=== PATIENT | female | born 1945 | race Caucasian/White ===

== ENCOUNTER 2023-07-30 15:54 | Outpatient (RCR) | payer OTHER, SELFPAY | END 2023-07-30 23:59 | disposition home or self-care (01) | LOC: RPT 15:54 | PROVIDERS: ATTENDING PHYSICIAN Physician Assistant Medical; FAMILY PHYSICIAN Student in an Organized Health Care Education/Training Program | DX: M25.512 Pain in left shoulder (principal); M25.511 Pain in right shoulder; M75.81 Other shoulder lesions, right shoulder; Z73.6 Limitation of activities due to disability; M62.81 Muscle weakness (generalized); R20.2 Paresthesia of skin | CPT/HCPCS: 97010; 97110; 97162 ==

== ENCOUNTER 2023-08-27 14:53 | Outpatient (RCR) | payer OTHER, SELFPAY | END 2023-08-27 23:59 | disposition home or self-care (01) | LOC: RPT 14:53 | PROVIDERS: ATTENDING PHYSICIAN Physician Assistant Medical; FAMILY PHYSICIAN Student in an Organized Health Care Education/Training Program | DX: M25.512 Pain in left shoulder (principal); M25.511 Pain in right shoulder; M75.81 Other shoulder lesions, right shoulder; Z73.6 Limitation of activities due to disability; M62.81 Muscle weakness (generalized) | CPT/HCPCS: 97010; 97110 ==

== ENCOUNTER 2023-09-20 15:17 | Outpatient (RCR) | payer OTHER, SELFPAY | END 2023-09-20 23:59 | disposition home or self-care (01) | LOC: RPT 15:17 | PROVIDERS: ATTENDING PHYSICIAN Physician Assistant Medical; FAMILY PHYSICIAN Student in an Organized Health Care Education/Training Program | DX: M25.512 Pain in left shoulder (principal); M25.511 Pain in right shoulder; M75.81 Other shoulder lesions, right shoulder; Z73.6 Limitation of activities due to disability; M62.81 Muscle weakness (generalized) | CPT/HCPCS: 97010; 97110 ==

== ENCOUNTER 2023-10-19 15:29 | Outpatient (RCR) | payer OTHER, SELFPAY | END 2023-10-19 23:59 | disposition home or self-care (01) | LOC: RPT 15:29 | PROVIDERS: ATTENDING PHYSICIAN Physician Assistant Medical; FAMILY PHYSICIAN Student in an Organized Health Care Education/Training Program | DX: M25.512 Pain in left shoulder (principal); M25.511 Pain in right shoulder; M75.81 Other shoulder lesions, right shoulder; Z73.6 Limitation of activities due to disability; M62.81 Muscle weakness (generalized) | CPT/HCPCS: 97010; 97110 ==

== ENCOUNTER → 2023-10-23 14:24 | Outpatient (REF) | payer OTHER, SELFPAY | LOC: RAD 14:24 | PROVIDERS: ATTENDING PHYSICIAN Student in an Organized Health Care Education/Training Program | DX: E11.29 Type 2 diabetes mellitus with other diabetic kidney complication (principal); R10.9 Unspecified abdominal pain | CPT/HCPCS: 74177; Q9967 ==

== ENCOUNTER 2023-11-29 15:02 | Outpatient (RCR) | payer OTHER, SELFPAY | END 2023-11-29 23:59 | disposition home or self-care (01) | LOC: RPT 15:02 | PROVIDERS: ATTENDING PHYSICIAN Physician Assistant Medical; FAMILY PHYSICIAN Student in an Organized Health Care Education/Training Program | DX: M25.512 Pain in left shoulder (principal); M25.511 Pain in right shoulder; M75.81 Other shoulder lesions, right shoulder; Z73.6 Limitation of activities due to disability; M62.81 Muscle weakness (generalized) | CPT/HCPCS: 97010; 97110 ==

== ENCOUNTER 2023-12-06 15:18 | Outpatient (RCR) | payer OTHER, SELFPAY | END 2023-12-07 07:34 | disposition home or self-care (01) | LOC: RPT 15:18 | PROVIDERS: ATTENDING PHYSICIAN Physician Assistant Medical; FAMILY PHYSICIAN Student in an Organized Health Care Education/Training Program | DX: M25.512 Pain in left shoulder (principal); M25.511 Pain in right shoulder; M75.81 Other shoulder lesions, right shoulder; Z73.6 Limitation of activities due to disability; M62.81 Muscle weakness (generalized) | CPT/HCPCS: 97010; 97110 ==

== ENCOUNTER → 2023-12-17 14:31 | Outpatient (REF) | payer OTHER, SELFPAY | LOC: WDC 14:31 | PROVIDERS: ATTENDING PHYSICIAN Surgery; FAMILY PHYSICIAN Emergency Medicine | DX: N64.4 Mastodynia (principal) | CPT/HCPCS: 76642 ==

== ENCOUNTER → 2024-04-04 14:17 | Outpatient (REF) | payer OTHER, SELFPAY | LOC: RAD 14:17 | PROVIDERS: ATTENDING PHYSICIAN Obstetrics & Gynecology Gynecology; FAMILY PHYSICIAN Emergency Medicine | DX: N95.0 Postmenopausal bleeding (principal) | CPT/HCPCS: 76830; 76856 ==

== ENCOUNTER → 2024-05-13 15:08 | Outpatient (REF) | payer OTHER, SELFPAY | LOC: WDC 15:08 | PROVIDERS: ATTENDING PHYSICIAN Emergency Medicine | DX: Z12.31 Encounter for screening mammogram for malignant neoplasm of breast (principal) | CPT/HCPCS: 77063; 77067 ==

== ENCOUNTER → 2024-06-16 18:03 | Outpatient (REF) | payer OTHER, SELFPAY | LOC: MRI 18:03 | PROVIDERS: ATTENDING PHYSICIAN Obstetrics & Gynecology Gynecology; FAMILY PHYSICIAN Emergency Medicine | DX: N95.0 Postmenopausal bleeding (principal); D21.9 Benign neoplasm of connective and other soft tissue, unspecified; E28.0 Estrogen excess; C80.1 Malignant (primary) neoplasm, unspecified | CPT/HCPCS: 72197; A9575 ==

== ENCOUNTER → 2024-09-08 14:19 | Outpatient (REF) | payer OTHER, SELFPAY | LOC: RAD 14:19 | PROVIDERS: ATTENDING PHYSICIAN Obstetrics & Gynecology Gynecologic Oncology; FAMILY PHYSICIAN Emergency Medicine; REFERRING PHYSICIAN Obstetrics & Gynecology Gynecology | DX: N95.0 Postmenopausal bleeding (principal); R19.03 Right lower quadrant abdominal swelling, mass and lump; R19.04 Left lower quadrant abdominal swelling, mass and lump; R97.8 Other abnormal tumor markers | CPT/HCPCS: 71260; 74177; Q9967 ==

== ENCOUNTER → 2024-09-30 10:45 | Outpatient (REF) | payer OTHER, SELFPAY | LOC: PAVMRI 10:45 | PROVIDERS: ATTENDING PHYSICIAN Nurse Practitioner Family; FAMILY PHYSICIAN Emergency Medicine | DX: R42 Dizziness and giddiness (principal) | CPT/HCPCS: 70553; A9575 ==

== ENCOUNTER 2024-10-14 06:21 | Day surgery (SDC) | payer OTHER, SELFPAY ==
--- NOTE | 2024-10-07 15:56 | VNURNOTE ---
Chart reviewed. Rec'ed info from PAT RN that patient may need VN post op. Home Health Liaison spoke with patient to discuss [facility] nurse/therapy, visits, schedule and homebound status. Patient is agreeable and understands that visits at home will be
2-3 x per week to assess and teach medical management. Patient is aware that [facility] will contact them for start of care in 1-2 days after discharge from .
[facility] referral completed in [facility].
[2024-10-08 13:58] VITALS: BMI 31.0
--- NOTE | 2024-10-13 06:45 | W.CON.GYNONC ---
Chief Complaint
-
leiomyoma
History of Present Illness
78�year�old�woman�who�is�presenting�to�the�office�for�consultation� CT�abdomen�and�pelvis�done�[place]�2024�shows�large�degenerated�uterine�fibroid�seen�again
Endometrial�biopsy�performed�[place]�2024�shows�benign�endometrial�polyp�disordered�proliferative�endometrium�approaching simple�hyperplasia�without�atypia.
Ultrasound�of�pelvis�October�2024�shows�uterus�11�x�4.5�x�6.4�cm,�the�uterus�is�overall�smaller�in�size�compared�to�the�prior�study
which�measured�20�cm,�some�calcified�fibroids�are�seen.�Endometrium�is�heterogeneous�at�1.5�cm�in�a�postmenopausal�woman which�is�abnormal.
4�patient�underwent�D&C,�there�is�fragments�of�endometrial�endocervical�polyp,�endometrial�polyp�was�removed which�was�benign.�Endocervical�curetting�shows�benign�endocervical�glandular�fragments.
An�MRI�of�the�pelvis�was�done�[place].�Impression�is�that�endometrial�stripe�is�actually�4.6�mm,�endometrial�cancer�is
unlikely,�there�is�multiple�calcified�enhancing�uterine�fibroids�compatible�with�previously�treated�uterine�artery�embolization.
Patient�did�have�additional�blood�work�February�2025�estradiol�was�elevated�at�188,�inhibin�B�was�at�21.3,�inhibin�a�was�18.
Patient�reports�having�had�breast�tenderness�a�number�of�months�ago�for�which�she�saw�Dr.�Angotti,�etiology�was�unclear.�She�has had�recent�breast�tenderness�again�but�none�today.
She�does�observe�that�many�of�the�bleeding�episodes�over�the�last�year�have�occurred�after�steroid�injection�that�she�received�in�her shoulders�or�knees�by�orthopedic�surgery
meds
aspirin�81�mg�capsule 08/18/2024 0 1�p.o.�q.�day atorvastatin�20�mg�tablet 08/18/2024 0 1�p.o.�twice�a day�(BID) Fish�Oil�900�mg�360�mg�455�mg�1,000�mg�capsule 09/22/2024 0 1�p.o.�q.�day metformin�500�mg/5�mL�oral�solution 08/18/2024 0 1�p.o.�twice�a
day�(BID) metoprolol�succinate�ER�25�mg�tablet,extended release�24�hr 08/18/2024 0 12.5�mg�1�p.o. q.�day multivitamin�oral 09/22/2024 0 1�p.o.�q.�day omeprazole�20�mg�tablet,delayed�release 08/18/2024 0 1�p.o.�twice�a day�(BID)
potassium�408�mg�debby�100�mg�magnes�120�mgmangan�2�mg�oral�powder�pack 09/22/2024 0 1�p.o.�q.�day tolterodine�2�mg�tablet 08/18/2024 0 1�p.o.�twice�a day�(BID)
Vitamin�D3�25�mcg�(1,000�unit)�tablet 09/22/2024 0 Xanax�0.5�mg�tablet 09/22/2024 0 1�p.o.�twice�a day�(BID)�prn
Past�Medical�History Allergies Anxiety Arthritis Cataract Diabetes�Mellitus Hypertension Hyperlipidemia Kidney�disease Osteoporosis
Surgical�History Biopsy�2021 Cholecystectomy�1988 Bilateral�Knee�replacement�2015
Social�History Patient�denies�ever�using�tobacco. Social�use�of�alcohol. Denies�any�illicit�drug�use. Marital�Status:�Patient�is�
Gynecological�History Age�at�Menarche�12�years.�Age�at�menopause:�53�years.�Patient�reports�1�pregnancies.
Family�Medical�History Sister:�breast�cancer,�hypertension Sister:�Colon�cancer Uncle�Colon�cancer Father:�Diabetes,�Heart�disease,�Hypertension Mother:�stroke
Medical History
Allergies
Allergies reflect when allergies were last updated in [employer].
ciprofloxacin Allergy (Verified 10/07/24 13:39)
redness of face & neck
Quinolones Allergy (Verified 10/07/24 13:39)
face and neck flushing
seasonal Allergy (Uncoded 10/07/24 13:39)
stuffy nose, clearing throat
Physical Exam
Physical Exam
General:�Well�developed,�well�nourished�patient.�In�no�acute�distress. Head:�Atraumatic�and�normocephalic. Neck:�No�thyromegaly.�No�cervical�lymphadenopathy. Lungs:�Clear�to�auscultation.�Good�air�movement�bilaterally.
Cardiac:�Regular�rate.�Regular�rhythm.�No�murmurs�appreciated. Abdomen:�Abdomen�is�soft.�Non�tender�to�palpation.�Non�distended. Extremities:�No�edema. Hematologic/Lymphatic:�No�palpable�lymphadenopathy.
Musculoskeletal:�Normal�range�of�motion.�Strength�and�Tone�are�normal. Neurologic:�Speech�is�fluent.�Normal�gait�and�station.�Cranial�nerves�intact.
Results
-
,08/29/24�JK789=3.6 ,08/29/24�CEA=3.8 08/29/24�AICMHC=689�2�POTASSIUM=5.0�2�XSMEDQCK=895�2�GLUCOSE=98�08/29/24�BUN=22�2 CREAT=1.06 08/29/24�CALCIUM=9.6�Total�Protein=5.9,�08/29/24�ALBUMIN=4.0
08/29/24�HMF=694,�Total�Bili=0.2�2�ALK�PHOS=79,�08/29/24�AST=20,�08/29/24�ALT=16 08/29/24�PROTIME=11.4,�08/29/24�INR=1.0, Ferritin=29,�08/29/24�IRON=69, 08/29/24�Q10=2239
[facility]
[address] [place] [id number]
[phone]
Patient Name: ERYN DOMINGO
: 1945
Unit Number: [id number]
Age/Sex: 78/F
Patient
Location: RAD
Order Provider: Abdi Baez MD
Exam Service Date: 09/08/24

Diagnostic Imaging Report
SignedOrder #:[id number]
Exams: CT Chest/abd/pel W Iv Cont
EXAMINATION: CT chest, abdomen, and pelvis with intravenous contrast.
INDICATION: Postmenopausal bleeding. Right lower quadrant abdominal swelling, mass and lump. Left lower quadrant abdominal swelling, mass and lump. Other abnormal tumor markers. Evaluate for metastatic disease.
COMPARISON: CT abdomen and pelvis 10/23/2023. No previous CT chest.
TECHNIQUE: Continuous helical acquisition from the apices of the lungs through the pubic symphysis following the intravenous administration of 80 mL of Omnipaque. Automated dose reduction technique was utilized. Delayed phase abdominal images were
acquired. Axial reconstructions and sagittal and coronal reformats provided.
FINDINGS:
Lungs: No consolidation. No pneumothorax. No pulmonary mass. No tracheal or endobronchial nodule or filling defect. 2 to 3 mm nodular opacity along the vessel in the lateral right lower lobe (image #28 series 201). Subpleural 3 mm nodule left upper
lobe (image #10 series 201). Left lower lobe oblong 4 mm focal opacity (image #31 series 201). Posterior left lower lobe 4 mm nodular opacity dependent position, possibly related to dependent atelectasis (image #22 series 201). No nodules highly
suspicious for metastatic disease.
Mediastinum: Thyroid gland is unremarkable. There is no axillary adenopathy. There is no mediastinal adenopathy. There is no enhancing mediastinal mass. No pleural or pericardial effusion. No cardiomegaly. No aneurysmal dilation of the thoracic
aorta. No hilar adenopathy identified. There is subcentimeter right hilar lymph node, nonspecific.
Abdomen and pelvis: Liver shows a left lobe subcentimeter low-attenuation lesion, too small to characterize but most likely a cyst. This was present prior. No suspicious focal hepatic lesions. No intrahepatic biliary dilation. Gallbladder is
surgically absent. Spleen is unremarkable. Pancreas is unremarkable. There is small probable accessory splenule adjacent to the pancreatic tail. This is unchanged from prior. Adrenal glands show some mild thickening which is likely related to
hyperplasia. The left kidney shows a subcentimeter low-attenuation focus, too small to characterize but most likely a cyst. Right kidney shows 2 subcentimeter low-attenuation foci, too small to characterize but most likely cysts. Right kidney also
shows a simple parapelvic cyst.
There is no bowel obstruction. The appendix is normal. Moderate number of colonic diverticula, no signs of acute diverticulitis. No abnormal focal inflammatory reaction of the bowel is seen. There is no free air or free fluid within the abdomen.
There is no retroperitoneal lymphadenopathy. There is no aneurysmal dilation of the abdominal aorta. There are moderate calcific atherosclerotic changes.
Uterus is enlarged and shows multiple mass lesions as seen previously. Some are rim calcified and some show partial dense stippled calcifications. At a hostess party sales representative level, the dominant mass measures approximately 13.4 cm transverse which is
similar to prior, with the mass in a slightly different position. At other measured hostess party sales representative levels, no definitive interval increase in size is identified. Soft tissue attenuation portion of the mass shows heterogeneous attenuation which is
unchanged from prior. The enlarged uterus exerts some mass effect against the decompressed urinary bladder. Endometrium is relatively indistinct at CT, no focal lesion identified. Rectum is unremarkable. No free fluid is seen within the pelvis.
Bones: Advanced degenerative changes of the spine. No suspicious focal osseous lesions.
IMPRESSION:
1. No findings highly suspicious for metastatic disease.
2. Very small pulmonary nodular/focal opacities as above. Given the small size, these are likely to have a benign etiology. As warranted, consider follow-up examination in 12 months for further evaluation.
3. Enlarged multi fibroid uterus as seen previously with extensive fibroid calcification. No clear interval increase in size of the dominant uterine mass.
4. Diverticulosis without diverticulitis.
Electronically signed by Mansoor Nieves DO, 09/08/2024 6:45 PM
Impression / Plan
-
This�patient�has�large�leiomyoma,�previously�treated�with�uterine�artery�embolization.�Over�the�course�of�past�year�she�has�had
multiple�episodes�of�bleeding�some�similar�to�her�menstrual�cycles�and�etiology�of�it�has�been�explored�but�nothing�has�been identified�as�of�yet.�The�workup�is�excellent�including�to�sampling�of�endometrium�and�also�evaluation�of�hormonal�values.
On�the�labs�that�I�ordered�there�is�definite�evidence�of�elevated�inhibin�B�and�actually�her�FSH�is�in�the�normal�range�suggesting�that
she�has�circulating�estrogen.�I�am�suspicious�that�she�may�have�granulosa�cell�tumor�of�the�ovary�even�though�her�ovaries�are�not enlarged.
CT�of�chest�abdomen�and�pelvis�as�well�as�chest�shows�no�evidence�of�metastatic�disease�to�retroperitoneum�and�some�very�small right�and�significant�pulmonary�nodules�are�identified.�These�will�be�followed�hopefully�in�the�future�CT.�
I�am�repeating�her�blood�test�including�tumor�markers�and�I�am�recommending�that�she�returns�back�in�3�weeks�for�discussion.�
I�am�still�going�forward�and�recommending�surgery�to�include�removal�of�uterus�cervix�bilateral�tubes�and�ovaries,�while�the�surgery
can�be�done�robotically�most�likely�for�the�extraction�of�specimen�she�will�need�a�mini�laparotomy.�If�there�is�a�concern�identified
intraoperatively�additional�surgical�staging�will�be�undertaken�to�include�but�not�limited�to�retroperitoneal�lymph�node�sampling,
omentectomy,�peritoneal�biopsies.�We�briefly�discussed�that�recovery�process�postoperatively.�Risks�of�surgery�including�infection
bleeding�injury�to�adjacent�organs�DVT�pulmonary�embolism�and�cardiovascular�complications�will�be�reviewed.�Informed�consent was�signed�in�the�office�today.�Surgery�is�tentatively�scheduled�on�[place]�
[2024-10-14] VITALS (13 sets, daily range): BP systolic 116–147; BP diastolic 67–111; BMI 31.0
[2024-10-14] MEDS: NORMOSOL-R/PLASMALYTE-A 1000 IV (09:23)
[2024-10-14 09:30] LABS: Glucose - Point of Care 108 mg/dl (70-99)
[2024-10-14] MEDS: CELEBREX 200 MG PO (09:45)
[2024-10-14] MEDS: TYLENOL 1000 MG PO (09:45)
[2024-10-14] MEDS: HEPARIN 5000 UNITS SC (09:45)
[2024-10-14] MEDS: NEURONTIN 300 MG PO (09:45)
[2024-10-14 14:17] LABS: Glucose - Point of Care 135 mg/dl (70-99)
--- NOTE | 2024-10-14 14:27 | OR.RPT ---
Operative Report
Operative Report
Date of procedure October 14, 2024
Preoperative diagnosis:abdominal masses suspicious for calcified uterine leiomyoma, postmenopausal bleeding
Postoperative diagnosis: Same
Procedure: Robotic assisted total laparoscopic hysterectomy, bilateral salpingo-oophorectomy uterus greater than 250 mg, partial omentectomy, pelvic washings
Mini laparotomy for extraction of specimen
Transversus abdominis plane block
Surgeon: Abdi Baez MD
Assist: CARLOS Vergara, NAA Fay
Anesthesia: General Endotracheal intubation
Complications: None
Estimated blood loss: 50 cc
Specimen: Uterus cervix bilateral tubes and ovaries with a portion of the omentum, pelvic washings
Procedure in detail: This patient was taken to the operating room and placed in supine position, general anesthesia was administered, she was intubated without any difficulty. Appropriate IVs were placed by anesthesia team. Both arms were wrapped
in foam and placed along the patient's side. She was positioned in dorsal lithotomy position using yellowfin stirrups, she was prepped in the abdomen perineum and vagina and draped. Timeout procedure was carried out she received appropriate
antibiotic with Ancef and Flagyl as well as 5000 units of heparin. Next Hodge catheter was placed under sterile condition in the bladder. External genitalia including anus urethra and vulva and vagina are normal the cervix was high up and anterior
right side of the pelvis I was able to use Cheema retractors and identified and grasped with next the cervical canal was gradually dilated to about 11 to 12 cm and uterine manipulator with 3.5 cm SHARMILA ring was placed in the uterine cavity and around
the cervix. Vaginal cuff occluder was insufflated. Attention was turned abdominally, Veress needle was placed just below the left subcostal margin and insufflation with CO2 gas was used to create pneumoperitoneum up to pressure of 15 mmHg. Next 8
mm excised robotic port was introduced 25 cm cephalad to symphysis pubis into the peritoneal cavity, under direct visualization 8 mm excised robotic ports were placed in the right and left upper abdomen and right and left lateral abdomen. Tap block
was performed with combination of ropivacaine and Decadron injected 2 fingerbreadths below the lateral aspect of right and left subcostal margin, between peritoneum and muscle and this was repeated in the mid abdominal region. Following this a
Pfannenstiel incision was made in the lower abdomen 2 fingerbreadths above the symphysis pubis and carried through subcutaneous tissue fascia and we opened the space between rectus muscles and create a peritoneal opening and a lap cap retract was
placed for extraction of specimens. Patient was placed in 28 degree Trendelenburg, robotic system was docked. I went ahead and set on the console and began to take off the omentum from the large right sided leiomyoma. On the posterior aspect
there were several bands of thin and thick scar tissue and vascular pedicles that were sealed and divided a portion of the omentum was left attached to the uterus and vessel sealer was used to seal and divide the omentum across until it was
completely free. Next our attention was turned to the right and left round ligaments which were sealed and divided anterior and posterior leaves the round ligament was dissected open the course of the ureter was identified bilaterally in the
retroperitoneum and a window was created between IP ligaments and the ureters. Each IP ligaments were sealed and made hemostatic there ovaries were left attached to the uterus. There was a calcified myoma which was attached to the left uterine
fundus this was sealed at its pedicle and divided and extracted and submitted to pathology. Bladder flap was sharply developed and advanced below the cervicovaginal junction. We took the peritoneal incisions down in the posterior cul-de-sac toward
cervix. There adipose tissue adjacent to the large left myoma was sealed and divided and from the uterus. I was able to then find the SHARMILA ring around the cervix and make a incision on the anterior aspect of the cervix. The remainder of
the uterine vessels on the right and left side of the cervix were sealed and divided and then a circumferential incision was made until the uterus was completely detached from the vagina. The uterine manipulator was removed and the balloon was
placed back in the vagina to maintain pneumoperitoneum. We removed the From the retractor on the lower abdomen and then extracted the uterus and cervix through this incision along with both tubes and ovaries as well as portion of the omentum. The
Was replaced and we reexamined the pelvis I was able to follow the right and left ureters into the pelvis and ensure that there was no injury to either of them. I backfilled the bladder and there was no evidence of injury to the bladder and no
thinning of the wall was noted. Following this 0 Vicryl suture ligature was used in a [id number] fashion incorporating uterosacral ligaments both on right and left side of the pelvis and then a V-Loc suture was used to close the vagina in a
running fashion. All pedicles were examined and there was no evidence of any bleeding. The visualized portions of the small and large bowel were within normal limits, appendix is small and short and unremarkable. I did not encounter any other
abnormalities in the abdomen. At this point all laparoscopic instruments were removed and pneumoperitoneum was released. We turned our attention to the lower abdominal incision and closed the fascia with 0 STRATAFIX suture starting from both ends
coming to the center and going back to the center. Subcutaneous tissue was reapproximated. 4-0 Monocryl was used to close all laparoscopic port sites as well as low transverse incision. Vagina was examined and there was no evidence of bleeding.
Hodge catheter was removed. Patient was awakened extubated and returned back to recovery room stable awake and extubated condition. Counts of laps instruments and needle was correct x 2. I was present and scrubbed for entire procedure as dictated
above. As there was no evidence of malignancy I did not perform any staging procedures.
Disposition: To PACU stable awake and extubated
[2024-10-14] MEDS: DILAUDID 0.25 MG IV (15:05)
[2024-10-14] MEDS: TYLENOL 650 MG PO (17:15)
== END 2024-10-14 18:20 | disposition home or self-care (01) ==
LOC: SDS 06:21
PROVIDERS: ATTENDING PHYSICIAN Obstetrics & Gynecology Gynecologic Oncology; FAMILY PHYSICIAN Emergency Medicine
DX: D25.9 Leiomyoma of uterus, unspecified (principal); D39.12 Neoplasm of uncertain behavior of left ovary; N95.0 Postmenopausal bleeding
CPT/HCPCS: 58571; 88305; 88307; 88311; 36415; 82962; 86850; 86900; 86901; 88112; 88341; 88342; 88360

== ENCOUNTER → 2024-10-31 12:24 | Outpatient (REF) | payer OTHER, SELFPAY | LOC: PAVMRI 12:24 | PROVIDERS: ATTENDING PHYSICIAN Nurse Practitioner Family | DX: M54.12 Radiculopathy, cervical region (principal) | CPT/HCPCS: 72156; A9575 ==

== ENCOUNTER → 2025-02-02 12:28 | Outpatient (REF) | payer OTHER, SELFPAY | LOC: PET 12:28 | PROVIDERS: ATTENDING PHYSICIAN Obstetrics & Gynecology Gynecologic Oncology | DX: C56.2 Malignant neoplasm of left ovary (principal) | CPT/HCPCS: 78815; A9552 ==

== ENCOUNTER → 2025-03-10 13:17 | Outpatient (REF) | payer OTHER, SELFPAY | LOC: EMG 13:17 | PROVIDERS: ATTENDING PHYSICIAN Orthopaedic Surgery Hand Surgery; FAMILY PHYSICIAN Family Medicine | DX: M25.512 Pain in left shoulder (principal); M54.12 Radiculopathy, cervical region; R20.0 Anesthesia of skin | CPT/HCPCS: 95886; 95909 ==

== ENCOUNTER → 2025-05-14 14:55 | Outpatient (REF) | payer OTHER, SELFPAY | LOC: WDC 14:55 | PROVIDERS: ATTENDING PHYSICIAN Family Medicine | DX: Z12.31 Encounter for screening mammogram for malignant neoplasm of breast (principal) | CPT/HCPCS: 77063; 77067 ==